=== PATIENT | male | born 1990 | race Asian ===

== ENCOUNTER 2023-08-22 07:03 | Day surgery (SDC) | payer OTHER ==
[2023-08-15 14:44] VITALS: BMI 26.2
[2023-08-22] MEDS ORDERED: LACTATED RINGERS SOLUTION 1,000 ML IV SCH (07:45)
[2023-08-22] MEDS ORDERED: oxyCODONE HCL 5 MG TABLET PO PRN (07:45)
[2023-08-22] MEDS ORDERED: ONDANSETRON 4 MG/2 ML VIAL IVPUSH PRN (07:45)
[2023-08-22] MEDS ORDERED: MIDAZOLAM HCL 2 MG/2 ML SINGLE DOSE VIAL ONE (07:46)
[2023-08-22] MEDS ORDERED: ROPIVACAINE HCL 0.5% 30ML VIAL ONE (07:46)
[2023-08-22] MEDS ORDERED: ACETAMINOPHEN INJECTION 100 ML IVPB ONE (07:46)
[2023-08-22] MEDS ORDERED: EPINEPHrine 1:1,000 1,000 MCG/ML ML ONE (07:56)
[2023-08-22] MEDS ORDERED: PROPOFOL 20 ML ONE (08:07)
[2023-08-22] MEDS ORDERED: FENTANYL CITRATE/PF 50 MCG/ML VIAL ONE (11:14)
[2023-08-22 11:43] VITALS: RESP 16
[2023-08-22 12:02] VITALS: TEMP 98.2
[2023-08-22 12:49] VITALS: BP 117/74; PULSE 90
== END 2023-08-22 12:53 | disposition home or self-care (01) ==
LOC: FASU 07:03
PROVIDERS: ATTEND Orthopaedic Surgery Sports Medicine
PROC: 0MQP4ZZ Repair Left Knee Bursa and Ligament, Percutaneous Endoscopic Approach (ICD-10-PCS; principal; 2023-08-22 08:43)
DX: S83.512A Sprain of anterior cruciate ligament of left knee, initial encounter (principal); S83.242A Other tear of medial meniscus, current injury, left knee, initial encounter; M65.862 Other synovitis and tenosynovitis, left lower leg; X58.XXXA Exposure to other specified factors, initial encounter; Y93.9 Activity, unspecified; Y92.9 Unspecified place or not applicable
CPT/HCPCS: 73560-TC-LT-FY; 94760; C1713; C1768; J0131